=== PATIENT | female | born 1950 | race Caucasian/White ===

== ENCOUNTER 2022-07-12 12:47 | Emergency (ER) | payer MEDICARE, SELFPAY ==
[2022-07-12] MEDS ORDERED: Labetalol HCl 100 MG/20 ML VIAL ONE (13:38)
[2022-07-12 13:48] LABS: #Monocytes 0.5 10x3/uL (0.0-1.1); #Neutrophils 8.5 10x3/uL (1.5-8.4); %Basophils 0.3 % (0.0-2.0); %Eosinophils 0.1 % (0.0-6.0); %Monocytes 5.5 % (0.0-10.0); %Neutrophils 89.7 % (40.0-75.0); Hemoglobin 10.4 g/dL (12.0-15.5); Mean Corpuscular HGB CONC 31.2 g/dL (32.0-36.0); Mean Corpuscular Hemoglobin 28.1 pg (27.0-33.0); Mean Platelet Volume 10.2 fl (7.4-10.4); Platelet Count 189 10x3/uL (150-450); RBC Distribution Width 15.8 % (11.5-14.5); White Blood Cell (WBC) Count 9.5 10x3/uL (3.5-10.5)
[2022-07-12 14:00] LABS: INR-International Normal Ratio 1.1; PTT 27.4 sec (22.0-33.0); Prothrombin Time 11.6 sec (9.5-12.1)
[2022-07-12 14:05] LABS: ALT (SGPT) 8 U/L (8-55); AST (SGOT) 8 U/L (5-34); Albumin 3.4 g/dL (3.4-4.8); Alkaline Phosphatase 50 U/L (40-110); Anion Gap 19 mmol/L (10-20); BUN (Urea Nitrogen) 73 mg/dL (9.8-20.1); Calc. Creatinine Clearance 0 mL/min (70-130); Calcium 9.2 mg/dL (7.8-10.44); Carbon Dioxide 22 mmol/L (23-31); Chloride 114 mmol/L (98-107); Estimated GFR 22; Globulin 3.5 g/dL (2.4-3.5); Glucose 260 mg/dL (83-110); Lipase 30 U/L (8-78); Potassium 3.7 mmol/L (3.5-5.1); Protein, Total 6.9 g/dL (5.8-8.1)
[2022-07-12 14:14] LABS: Sodium 151 mmol/L (136-145)
[2022-07-12 14:25] LABS: CKMB 1.5 ng/mL (0-6.6)
[2022-07-12] MEDS ORDERED: Furosemide 100 MG/10 ML VIAL ONE (14:29)
[2022-07-12] MEDS ORDERED: Nitroglycerin 0.4 MG TAB 1 EACH ONE (14:29)
[2022-07-12] MEDS ORDERED: Nitroglycerin 2% Ointment 1 INCH/1 GM Packet ONE (14:29)
[2022-07-12] MEDS ORDERED: Aspirin Chewable 81 MG TAB ONE (14:58)
[2022-07-12 15:16] LABS: Anion Gap 18 mmol/L (10-20); BUN (Urea Nitrogen) 72 mg/dL (9.8-20.1); Calc. Creatinine Clearance 0 mL/min (70-130); Calcium 9.2 mg/dL (7.8-10.44); Carbon Dioxide 23 mmol/L (23-31); Chloride 114 mmol/L (98-107); Estimated GFR 22; Glucose 235 mg/dL (83-110); Potassium 3.5 mmol/L (3.5-5.1)
[2022-07-12 15:19] LABS: Sodium 151 mmol/L (136-145)
[2022-07-12 16:06] LABS: SARS-CoV-2 NAA Rapid Test Not Detected (NotDetected)
== END 2022-07-12 20:04 | disposition short-term general hospital (02) ==
LOC: CSHERS 12:47
DX: N17.9 Acute kidney failure, unspecified (principal); R41.82 Altered mental status, unspecified; I50.9 Heart failure, unspecified; E87.0 Hyperosmolality and hypernatremia; R77.8 Other specified abnormalities of plasma proteins; E11.9 Type 2 diabetes mellitus without complications; Z79.899 Other long term (current) drug therapy; Z20.822 Contact with and (suspected) exposure to COVID-19
CPT/HCPCS: 36415; 70450; 71045; 76770; 80053; 82553; 83605; 83690; 83880; 84443; 84484; 85025; 85610; 85730; 87040; 93005; 94760; 96374; 96375; J1940